=== PATIENT | female | born 1985 | race Caucasian/White ===

== ENCOUNTER → 2016-09-05 | Outpatient (REF) | payer OTHER ==
[~2016-09-05] MED LIST: ACET500C OR; IBUP80TA PO; NUPE1OIN2 TOP; VITAPRTA PO
== END ==
LOC: M LAB REF 17:13
PROVIDERS: ATTEND Advanced Practice Midwife
DX: Z34.81 Encounter for supervision of other normal pregnancy, first trimester (principal)

== ENCOUNTER → 2016-11-09 | Outpatient (CLI) | payer OTHER ==
--- NOTE | 2016-11-09 12:23 | REP ---
OB ULTRASOUND: Real-time sonographic evaluation of the gravid uterus is performed. There is a single living intrauterine gestation with an estimated gestational age 19 weeks 1 day based on first trimester ultrasound at an outside facility, [facility] 04/04/2017. Today's measurement indicate somewhat greater than expected growth. Biometry and Growth: BPD 47 mm = 20 weeks 2 days, 81st percentile HC 180 mm = 20 weeks 3 days, 89th percentile AC 168 mm = 21 weeks 5 days, greater than 95th percentile FL 34 mm = 20 weeks 4 days , 86th percentile HC/AC ratio 1.07 within normal range. Estimated weight 399 grams greater than 97th percentile. SEEN/GROSSLY UNREMARKABLE Lateral ventricles Yes Posterior fossa Yes Upper lip Yes Four-chamber heart Yes LVOT Yes RVOT Yes Stomach Yes Cord insertion Yes Three vessel cord Yes Kidneys Yes Bladder Yes Spine Yes Cervical length: Closed and measures 4.3 cm in length. heart rate: 143 beats per minute. position: Transverse with head towards the maternal right side. Placenta: Anterior and grade 0 with no previa or abruption. Amniotic fluid: Within normal limits. Signed by Pravin Bryson MD 11/09/2016 05:21 P
== END ==
LOC: M RAD 10:38
PROVIDERS: ATTEND Obstetrics & Gynecology
DX: Z36 Encounter for antenatal screening of mother (principal); Z3A.20 20 weeks gestation of pregnancy

== ENCOUNTER → 2016-12-28 | Outpatient (CLI) | payer OTHER ==
[2016-12-28 14:57] LABS: MEAN CORPUSCULAR HEMOGLOBIN 29.6 pg (27.0-33.0); MEAN CORPUSCULAR HGB CONC 33.5 g/dl (32.0-36.5); MEAN CORPUSCULAR VOLUME 88.1 fl (80.0-96.0); RED CELL DISTRIBUTION WIDTH 13.3 % (11.5-14.5); WHITE BLOOD COUNT 8.9 10^3/uL (4.0-10.0)
== END ==
LOC: M SMT 10:24
PROVIDERS: ATTEND Obstetrics & Gynecology
DX: Z34.82 Encounter for supervision of other normal pregnancy, second trimester (principal)

== ENCOUNTER → 2017-03-06 | Outpatient (CLI) | payer OTHER ==
--- NOTE | 2017-03-06 20:27 | REP ---
Clinical: Growth evaluation (size greater than dates). Comparison: 11/09/2016 . Findings: Examination demonstrates a single live intrauterine in cephalic presentation. motion is identified by technologist. Placenta is noted anteriorly and grade one without evidence for placenta previa or abruption. Amniotic fluid volume is normal. No evidence for nuchal cord Gestational age by LMP 35 weeks 6 days with ENEIDA 04/04/2017 . Gestational age by current measurements 36 weeks 4 days with ENEIDA 03/30/2017 . FHR equals 162 beats per minute. Amniotic fluid index: 10.8 cm (7.7 - 24.9). Umbilical cord SD ratio: 2.33 (2.00 - 3.00). Estimated weight 3072 grams ( 69th percentile). Impression: Single live advanced gestation in cephalic presentation. Biometrical measurements and estimated weight are within normal range. Signed by Jose Mcdermott MD 03/06/2017 05:18 P
== END ==
LOC: M RAD 08:41
PROVIDERS: ATTEND Advanced Practice Midwife
DX: O26.843 Uterine size-date discrepancy, third trimester (principal); Z3A.35 35 weeks gestation of pregnancy

== ENCOUNTER → 2017-03-06 | Outpatient (REF) | payer OTHER | LOC: M LAB REF 17:45 | PROVIDERS: ATTEND Obstetrics & Gynecology | DX: Z34.83 Encounter for supervision of other normal pregnancy, third trimester (principal) ==

== ENCOUNTER 2017-03-29 08:50 | Inpatient (IN) | payer OTHER ==
[2017-03-29] MEDS ORDERED: LR 1,000 ML IV (09:00)
[2017-03-29] MEDS: PRENATAL VITAMINS CHEWABLE TABLET PO (09:00)
[2017-03-29] MEDS: DOCUSATE SODIUM 100 MG CAP PO ×2 (09:00→19:55)
[2017-03-29 09:22] LABS: HEMOGLOBIN 12.6 g/dl (12.0-16.0); MEAN CORPUSCULAR HEMOGLOBIN 28.4 pg (27.0-33.0); MEAN CORPUSCULAR HGB CONC 33.2 g/dl (32.0-36.5); MEAN CORPUSCULAR VOLUME 85.8 fl (80.0-96.0); PLATELET COUNT, AUTOMATED 269 10^3/uL (150-450); RED BLOOD COUNT 4.43 10^6/uL (4.00-5.40); RED CELL DISTRIBUTION WIDTH 13.5 % (11.5-14.5); WHITE BLOOD COUNT 11.1 10^3/uL (4.0-10.0)
[2017-03-29] MEDS: LACTATED RINGER'S 1000 ML IV (09:30)
[2017-03-29] MEDS ORDERED: FENTANYL 2MCG/ML ROPIVACAINE 0.2% IN 0.9% NACL 200ML IVBAG As Ordered (09:38)
[2017-03-29] MEDS ORDERED: OXYTOCIN 30 UNITS IN 0.9% NaCl 500ML IV BAG (J2590) As Ordered (10:17)
[2017-03-29] MEDS ORDERED: ONDANSETRON 4MG/2ML VIAL (J2405) IV (11:30)
[2017-03-29] MEDS ORDERED: METHYLERGONOVINE MALEATE 0.2 MG TAB PO (11:30)
[2017-03-29] MEDS ORDERED: DOCUSATE SODIUM 100 MG CAP PO (11:30)
[2017-03-29] MEDS: LIDOCAINE 1% MDV INJ 50 ML VIAL INFIL (11:30)
[2017-03-29] MEDS: AMPICILLIN SOD/SULBACTAM SOD 3 GM in D5W MINI-BAG PLUS 100 ML IV ×3 (11:48→23:38)
[2017-03-29] MEDS: IBUPROFEN 800 MG TAB PO ×2 (11:48→21:17)
[2017-03-29] MEDS: OXYTOCIN DRIP 30 UNITS in APPROPRIATE DILUENT 1 EA IV ×2 (11:54→18:37)
[2017-03-29] MEDS: RHOGAM 300 MCG (1500 IU) INJ (J2790) IM (13:30)
[2017-03-29] MEDS: MEASLES,MUMPS,RUBELLA VACCINE INJ (MMR-II) (90707) SC (13:31)
[2017-03-29 15:17] LABS: HBSAG L&D NEGATIVE (NEGATIVE)
[2017-03-29] MEDS: DIBUCAINE 1% OINTMENT 30GM TOP (19:56)
[2017-03-29] MEDS: ACETAMINOPHEN 500 MG TAB PO (21:18)
[2017-03-30] MEDS: AMPICILLIN SOD/SULBACTAM SOD 3 GM in D5W MINI-BAG PLUS 100 ML IV (05:58)
[2017-03-30] MEDS: PRENATAL VITAMINS CHEWABLE TABLET PO (09:00)
[2017-03-30] MEDS: DOCUSATE SODIUM 100 MG CAP PO (14:06)
[2017-03-31] MEDS: DOCUSATE SODIUM 100 MG CAP PO (05:52)
[2017-03-31] MEDS: PRENATAL VITAMINS CHEWABLE TABLET PO (09:10)
== END 2017-03-31 14:20 | disposition home or self-care (01) | DRG 560 ==
LOC: M LDO 08:50 → M LDI 09:03 → M OBS 15:08
PROC: 10E0XZZ Delivery of Products of Conception, External Approach (ICD-10-PCS; principal; 2017-03-29)
PROC: 0DQP0ZZ Repair Rectum, Open Approach (ICD-10-PCS; 2017-03-29)
DX: O66.0 Obstructed labor due to shoulder dystocia (principal); O70.3 Fourth degree perineal laceration during delivery; Z37.0 Single live birth; Z3A.39 39 weeks gestation of pregnancy

== ENCOUNTER 2017-08-07 06:17 | Day surgery (SDC) | payer OTHER ==
[2017-08-07] MEDS ORDERED: LR 1,000 ML IV ×3 (06:30→09:45)
[2017-08-07] MEDS ORDERED: MIDAZOLAM INJ 2 MG/2 ML VIAL (J2250) As Ordered (06:42)
[2017-08-07] MEDS ORDERED: fentaNYL 100 MCG/2 ML INJECTION (J3010) As Ordered ×2 (06:42→09:20)
[2017-08-07] MEDS ORDERED: LIDOCAINE 2% INJ 100 MG/5 ML SDV (FOR ANES.) As Ordered (06:43)
[2017-08-07] MEDS ORDERED: ROCURONIUM BROMIDE 50 MG/5 ML VIAL As Ordered (06:43)
[2017-08-07] MEDS ORDERED: ONDANSETRON 4MG/2ML VIAL (J2405) As Ordered (06:43)
[2017-08-07] MEDS ORDERED: dexameTHASONE 4 MG/ML 1ML VIAL (J1100) As Ordered (06:43)
[2017-08-07] MEDS ORDERED: PROPOFOL 200 MG/20 ML VIAL As Ordered (06:43)
[2017-08-07 06:50] LABS: HEMATOCRIT 42.1 % (36.0-47.0); HEMOGLOBIN 14.3 g/dl (12.0-15.5); MEAN CORPUSCULAR HEMOGLOBIN 28.8 pg (27.0-33.0); MEAN CORPUSCULAR VOLUME 84.9 fl (80.0-96.0); PLATELET COUNT, AUTOMATED 317 10^3/uL (150-450); RED BLOOD COUNT 4.96 10^6/uL (4.00-5.40); WHITE BLOOD COUNT 6.5 10^3/uL (4.0-10.0)
[2017-08-07 07:15] LABS: CONTROL LINE HCG INT CTR LINE PRESENT; HCG, SERUM QUALITATIVE NEGATIVE (NEGATIVE)
[2017-08-07] MEDS ORDERED: HYDROmorphone HCL 2 MG/ML 1ML VIAL (J1170) As Ordered (07:37)
[2017-08-07] MEDS ORDERED: GLYCOPYRROLATE INJ 0.2 MG/ML 2 ML VIAL As Ordered ×2 (08:03→08:05)
[2017-08-07] MEDS ORDERED: NEOSTIGMINE 10 MG/10 ML VIAL (J2710) As Ordered (08:03)
[2017-08-07] MEDS ORDERED: KETOROLAC 60 MG/2 ML VIAL (J1885) As Ordered (08:46)
[2017-08-07] MEDS: LIDOCAINE 1% SDV INJ 30 ML VIAL As Ordered (08:57)
[2017-08-07] MEDS: BUPIVACAINE HCL 0.25% 30 ML VIAL As Ordered (08:57)
[2017-08-07] MEDS ORDERED: PERCOCET 5MG/325MG TAB As Ordered (09:20)
[2017-08-07] MEDS: fentaNYL 100 MCG/2 ML INJECTION (J3010) IV ×4 (09:30→09:45)
[2017-08-07] MEDS ORDERED: PERCOCET 5MG/325MG TAB PO ×2 (09:45)
[2017-08-07] MEDS ORDERED: MORPHINE 10 MG/ML 1ML VIAL (J2270) IV (09:45)
[2017-08-07] MEDS ORDERED: ONDANSETRON 4MG/2ML VIAL (J2405) IV (09:45)
[2017-08-07] MEDS: PERCOCET 5MG/325MG TAB PO (09:45)
== END 2017-08-07 13:13 | disposition home or self-care (01) ==
LOC: M SDC 06:17
DX: Z30.2 Encounter for sterilization (principal); K42.9 Umbilical hernia without obstruction or gangrene; K65.4 Sclerosing mesenteritis; M62.08 Separation of muscle (nontraumatic), other site
CPT/HCPCS: 58671

== ENCOUNTER → 2019-11-04 | Outpatient (REF) | payer OTHER ==
[~2019-11-04] MED LIST changes: +COLA100C5 PO; +IBUP-1114 PO; +MAPA500T2 PO; +OXYC1TAB23 PO
== END ==
LOC: M LAB REF 13:00
PROVIDERS: ATTEND Specialist
DX: Z12.4 Encounter for screening for malignant neoplasm of cervix (principal)